=== PATIENT | male | born 1960 | race Caucasian/White ===

== ENCOUNTER 2018-03-02 17:12 | Emergency (ER) | payer MEDICAID, OTHER ==
[~2018-03-02] VITALS: Ht 172.7 cm; Wt 95.5 kg
[2018-03-02 17:43] VITALS: Ht 172.7 cm; Wt 95.5 kg
[2018-03-02] MEDS ORDERED: LORAZEPAM 2 MG INJ IV STA (17:43)
[2018-03-02] MEDS ORDERED: IPRATROPIUM (NEB) 0.5 MG/2.5 ML AMP NEB STA (17:43)
[2018-03-02] MEDS ORDERED: SOD CHLORIDE 0.9% 1,000 ML IV STA (17:43)
[2018-03-02] MEDS ORDERED: ALBUTEROL 0.083% (NEB) 2.5 MG/3 ML AMP NEB STA (17:43)
[2018-03-02] MEDS ORDERED: ONDANSETRON 4 MG INJ IV STA (17:53)
[2018-03-02] MEDS ORDERED: LIDOCAINE/MYLANTA 40 ML BTL PO STA (17:53)
[2018-03-02] MEDS ORDERED: BELLADONNA/PHENOBARBITAL TAB PO STA (17:53)
[2018-03-02] MEDS ORDERED: FOLIC ACID IV ONE (22:14)
[2018-03-02] MEDS ORDERED: [UNRECOGNIZED DRUG - OTHER] IV ONE (22:14)
[2018-03-02] MEDS ORDERED: MULTIVITAMINS IV ONE (22:14)
[2018-03-02] MEDS ORDERED: MAGNESIUM SULFATE IV ONE (22:14)
[2018-03-02] MEDS ORDERED: THIAMINE 100 MG TAB PO ONE (22:30)
--- NOTE | 2018-03-02 23:11 | ERD ---
ER Documentation Chief Complaint Chief Complaint bib ems from home d/t reports of drinking rubbing etoh, intractable coughin HPI This is a 57-year-old male with a history of alcohol abuse. He was brought into the emergency department by EMS as he stated he had been drinking again a significant amount of tequila throughout the day and ran out of alcohol. Therefore he stated he consumed 1 shot of rubbing alcohol and afterwards de veloped a significant amount of coughing. He states the coughing episode had lasted for roughly 1 hour. Therefore he phoned EMS and was brought to the emergency department for further evaluation. He denied any blunt or penetrating head chest or abdominal trauma. He denies headache. He denies any chest pain or pressure. He denies any difficulty in swallowing. He has not experienced any hemoptysis hematemesis or melanotic stools. He denies any abdominal pain. ROS All systems reviewed and are negative except as per history of present illness. Medications Home Meds No Active Prescriptions or Reported Meds Allergies Allergies: Coded Allergies: No Known Allergy (Unverified , 03/02/18) PMhx/Soc History of Surgery: No Anesthesia Reaction: No Hx Neurological Disorder: No Hx Respiratory Disorders: No Hx Cardiac Disorders: No Hx Psychiatric Problems: No Hx Miscellaneous Medical Probl: Yes (ETOH ABUSE) Hx Alcohol Use: Yes (ABUSE) Hx Substance Use: No Hx Tobacco Use: No Smoking Status: Never smoker Physical Exam Vitals Vital Signs Date Temp Pulse Resp B/P (MAP) Pulse Ox O2 O2 Flow FiO2 Time Delivery Rate 03/02/18 98.7 117 25 117/72 96 Room Air 21:04 (87) 03/02/18 115 19 99 21 17:51 03/02/18 99.8 118 30 119/77 100 17:43 (91) Physical Exam Constitutional:Well-developed. Well-nourished. Patient is coughing HEENT:Normocephalic. Atraumatic.Pupils were equal round reactive to light. Moist mucous membranes.No tonsillar exudates. No lesions of the oropharynx. No angioedema no macroglossia. No large amount of the uvula. Neck: No nuchal rigidity. No lymphadenopathy. No posterior cervical spine tenderness or step-offs. Respiratory: Not using accessory muscles of respiration.Lungs were clear to auscultation bilaterally. No rhonchi. No rales. No wheezing. Cardiovascular: Regular rate regular rhythm.No murmurs. No rubs were appreciated.S1, S2 normal. Distal pulses are palpable 2+ bilaterally. GI: Abdomen was soft. Nontender. Non Distended. No pulsatile abdominal masses or bruits. No rebound. No guarding. Bowel sounds were present and normal. Muscle skeletal: Full range of motion of both the upper and lower extremities bilaterally.Normal muscle tone.No assymetrical calf tenderness or swelling. Skin: No petechia, no purpura. No lesions on the palms or the soles of the feet. No maculopapular rash. NEURO: Patient was alert, awake, orientated x3.No facial droop. Gait observed and normal with no ataxia.Speech was slurred and smells of alcohol. No focal neurological deficits. Result Diagram: 03/02/18180103/02/181801 Results 24 hrs Laboratory Tests Test 03/02/18 18:02 White Blood Count 5.6 10^3/ul Red Blood Count 4.37 10^6/ul Hemoglobin 14.9 g/dl Hematocrit 43.4 % Mean Corpuscular Volume 99.3 fl Mean Corpuscular Hemoglobin 34.1 pg Mean Corpuscular Hemoglobin Concent 34.3 g/dl Red Cell Distribution Width 13.5 % Platelet Count 105 10^3/UL Mean Platelet Volume 12.5 fl Immature Granulocytes % 0.200 % Neutrophils % 49.0 % Lymphocytes % 43.1 % Monocytes % 5.9 % Eosinophils % 1.1 % Basophils % 0.7 % Nucleated Red Blood Cells % 0.0 /100WBC Immature Granulocytes # 0.010 10^3/ul Neutrophils # 2.8 10^3/ul Lymphocytes # 2.4 10^3/ul Monocytes # 0.3 10^3/ul Eosinophils # 0.1 10^3/ul Basophils # 0.0 10^3/ul Nucleated Red Blood Cells # 0.0 10^3/ul Sodium Level 139 mmol/L Potassium Level 4.4 mmol/L Chloride Level 102 mmol/L Carbon Dioxide Level 20 mmol/L Anion Gap 17 Blood Urea Nitrogen 18 mg/dl Creatinine 0.80 mg/dl Est Glomerular Filtrat Rate mL/min > 60 mL/min Glucose Level 119 mg/dl Calcium Level 9.4 mg/dl Total Bilirubin 1.2 mg/dl Direct Bilirubin 0.00 mg/dl Indirect Bilirubin 1.2 mg/dl Aspartate Amino Transf (AST/SGOT) 69 IU/L Alanine Aminotransferase (ALT/SGPT) 14 IU/L Alkaline Phosphatase 68 IU/L Total Protein 8.2 g/dl Albumin 4.8 g/dl Globulin 3.40 g/dl Albumin/Globulin Ratio 1.41 Amylase Level 99 U/L Lipase 130 U/L Salicylates Level < 1.0 mg/dl Acetaminophen Level < 10.0 ug/ml Ethyl Alcohol Level 345.0 mg/dl Current Medications Medications Dose Sig/Kerrie Start Time Status Last (Trade) Ordered Route PRN Stop Time Admin Dose Reason Admin Sodium 1,000 ml @ Q1H STAT 03/02/18 DC 03/02/18 Chloride 1,000 mls/hr IV 17:43 17:59 03/02/18 18:42 Albuterol 5 mg ONCE STAT 03/02/18 DC 03/02/18 (Proventil NEB 17:43 17:49 0.083% (Neb)) 03/02/18 17:45 Ipratropium 0.5 mg ONCE STAT 03/02/18 DC 03/02/18 [place] NEB 17:43 17:51 (Atrovent 03/02/18 17:45 0.02% (Neb)) Lorazepam 1 mg ONCE STAT 03/02/18 DC 03/02/18 (Ativan) IV 17:43 17:59 03/02/18 17:45 Ondansetron 4 mg ONCE STAT 03/02/18 DC 03/02/18 HCl (Zofran IV 17:53 17:59 Inj) 03/02/18 17:54 40 ml ONCE STAT 03/02/18 DC Miscellaneous PO 17:53 Medication 03/02/18 17:54 (Gi Cocktail (2)) Belladonna/ 2 tab ONCE STAT 03/02/18 DC 03/02/18 Phenobarbital PO 17:53 22:28 () 03/02/18 17:54 Magnesium 1,014.2 ml Q2H2M ONCE 03/02/18 03/02/18 Sulfate 2 @ 500 mls/ IV 22:14 22:39 gm/ hr 03/03/18 00:15 Multivitamins 10 ml/Folic Acid 1 mg/Sodium Chloride Thiamine 100 mg ONCE ONCE 03/02/18 DC 03/02/18 HCl PO 22:30 22:22 (Vitamin B1) 03/02/18 22:31 Procedures/MDM This is a 57-year-old male that presented to the emergency department acutely intoxicated and consumed 1 shot of isopropyl alcohol. The patient was placed on monitoring specialist continuous pulse oximetry and IV access was established by nursing staff. The patient continued to have a dry cough. The patient was given a GI cocktail Viscous Lidocaine Maalox and as well as a nebulizer treatment of albuterol. He was also given IV Ativan. His cough had subsided. 12 Lead EKG tracing ordered and reviewed by myself showed: Sinus tachycardia 120 bpm and no arrhythmia. IA interval normal. QRS duration normal. No ST segment elevation No ST segment depression. No changes consistent with acute ischemia. The patient no severe loculate abnormalities. The patient's serum ethanol was elevated at 345. Patient consumed 1 ounce of isopropyl alcohol several hours prior to arrival. I do not feel that the patient required charcoal. There is no signs of hypothermia hypotensive shock or respiratory depression. There was not an osmolar gap and I did feel that the patient's symptoms could further be supportive care. His is at bedside as well as his daughter. They felt comfortable discharging the patient home with his . The patient's tach ycardia had improved. He did receive a banana bag while in the emergency department. Observation Note: Time: 4 hours Family Hx: No Hypertension Evaluation: Multiple exams showed improving symptoms and no evidence of impending delirium tremors Departure Diagnosis: Primary Impression: Isopropyl alcohol poisoning Additional Impressions: Toxic encephalopathy Intoxication Condition: Fair Patient Instructions: Alcohol Intoxication ADENIKE YUN MD Mar 02, 2018 23:11
[2018-03-03 00:20] VITALS: BP 120/84; PULSE 104; RESP 15
== END 2018-03-03 00:23 | disposition home or self-care (01) ==
LOC: E/R 17:12
DX: T51.2X1A Toxic effect of 2-Propanol, accidental (unintentional), initial encounter (principal); G92 Toxic encephalopathy; R40.2242 Coma scale, best verbal response, confused conversation, at arrival to emergency department; R40.2352 Coma scale, best motor response, localizes pain, at arrival to emergency department; R40.2132 Coma scale, eyes open, to sound, at arrival to emergency department; R05 Cough
CPT/HCPCS: 71045; 80053; 80307; 82150; 83690; 85025; 93005; 94664; 96374; 96375; J2060; J2405; J3475; J7030; Z7502; Z7610

== ENCOUNTER 2018-07-22 18:45 | Emergency (ER) | payer MEDICAID, OTHER ==
[~2018-07-22] VITALS: Ht 172.7 cm; Wt 81.8 kg
[2018-07-22 18:54] VITALS: Ht 172.7 cm; Wt 81.8 kg
--- NOTE | 2018-07-22 19:03 | ERD ---
ER Documentation Chief Complaint Chief Complaint sob x today HPI The patient is a 58-year-old male, presenting to the ER by [employer] because of difficulty breathing today. He is under the influence and has been drinking, denies any trauma, denies headache, neck pain, chest pain, abdominal pain, vomiting, dysuria, diarrhea. He drinks regularly, was in the ER in March 02 for similar symptoms Past medical l history/past surgical history/social history/review of system: Limited due to condition Medications Home Meds No Active Prescriptions or Reported Meds Allergies Allergies: Coded Allergies: No Known Allergy (Unverified , 03/02/18) PMhx/Soc History of Surgery: No Anesthesia Reaction: No Hx Neurological Disorder: No Hx Respiratory Disorders: No Hx Cardiac Disorders: No Hx Psychiatric Problems: No Hx Miscellaneous Medical Probl: Yes (ETOH ABUSE) Hx Alcohol Use: Yes (ABUSE) Hx Substance Use: No Hx Tobacco Use: No Physical Exam Vitals Vital Signs Date Temp Pulse Resp B/P (MAP) Pulse Ox O2 O2 Flow FiO2 Time Delivery Rate 07/22/18 94 17 134/90 96 Room Air 19:37 (105) 07/22/18 Nasal 2 19:10 Cannula 07/22/18 99.0 118 18 139/90 99 18:54 (106) Physical Exam Const: No acute distress. Head: Atraumatic. Eyes: Normal Conjunctiva. ENT: Normal External Ears, Nose and Mouth. Neck: Full range of motion. No meningismus. Resp: Clear to auscultation bilaterally. Cardio: Regular rate and rhythm. Abd: Soft, non distended, normal bowel sounds, non tender. Skin: No petechiae or rashes. Back: No midline or flank tenderness. Ext: No cyanosis, or edema. Neur: Awake and alert. No focal deficit Psych: Anxious Result Diagram: 07/22/18190407/22/181904 Results 24 hrs Laboratory Tests Test 07/22/18 19:05 White Blood Count 7.2 10^3/ul Red Blood Count 4.27 10^6/ul Hemoglobin 14.6 g/dl Hematocrit 41.9 % Mean Corpuscular Volume 98.1 fl Mean Corpuscular Hemoglobin 34.2 pg Mean Corpuscular Hemoglobin Concent 34.8 g/dl Red Cell Distribution Width 12.7 % Platelet Count 84 10^3/UL Mean Platelet Volume 12.6 fl Immature Granulocytes % 0.300 % Neutrophils % 63.0 % Lymphocytes % 29.3 % Monocytes % 7.0 % Eosinophils % 0.0 % Basophils % 0.4 % Nucleated Red Blood Cells % 0.0 /100WBC Immature Granulocytes # 0.020 10^3/ul Neutrophils # 4.5 10^3/ul Lymphocytes # 2.1 10^3/ul Monocytes # 0.5 10^3/ul Eosinophils # 0.0 10^3/ul Basophils # 0.0 10^3/ul Nucleated Red Blood Cells # 0.0 10^3/ul Prothrombin Time 13.2 Sec Prothrombin Time Ratio 1.0 INR International Normalized Ratio 0.99 Activated Partial Thromboplast Time 28.1 Sec Sodium Level 140 mmol/L Potassium Level 4.2 mmol/L Chloride Level 101 mmol/L Carbon Dioxide Level 19 mmol/L Anion Gap 20 Blood Urea Nitrogen 13 mg/dl Creatinine 0.59 mg/dl Est Glomerular Filtrat Rate mL/min > 60 mL/min Glucose Level 118 mg/dl Calcium Level 9.0 mg/dl Total Bilirubin 1.7 mg/dl Direct Bilirubin 0.00 mg/dl Indirect Bilirubin 1.7 mg/dl Aspartate Amino Transf (AST/SGOT) 90 IU/L Alanine Aminotransferase (ALT/SGPT) 21 IU/L Alkaline Phosphatase 69 IU/L Troponin I < 0.012 ng/ml B-Type Natriuretic Peptide 51 PG/ML Total Protein 8.7 g/dl Albumin 4.8 g/dl Globulin 3.90 g/dl Albumin/Globulin Ratio 1.23 Ethyl Alcohol Level 286.0 mg/dl Current Medications Medications Dose Sig/Kerrie Start Time Status Last (Trade) Ordered Route PRN Stop Time Admin Dose Reason Admin Lorazepam 1 mg ONCE ONCE 07/22/18 DC 07/22/18 (Ativan) IV 19:30 19:33 07/22/18 19:31 Procedures/MDM EKG: Read by emergency physician Rate/Rhythm: Normal Sinus Rhythm 90 beats/min QRS, ST, T-waves: No ST elevation, no T inversion,RSR' in V1 Impression: Abnormal EKG MEDICAL MAKING DECISION: The patient is a 58-year-old male, presenting with acute anxiety, acute alcohol abuse. He was treated with Ativan 1 mg IV with good response, is resting comfortably The differential diagnoses considered include but are not limited to alcohol abuse, anxiety attack, panic attack, substance abuse Departure Diagnosis: Primary Impression: Alcohol abuse Additional Impressions: Panic attack Thrombocytopenia Condition: Good Comments The patient's blood pressure was elevated (>120/80) but appears stable without evidence of hypertension emergency or urgency. The patient was counseled about the risks of hypertension and urged to pursue outpatient monitoring and therapy within a week with their primary care physician. I discussed the findings with the patient. I advised the patient to follow-up with the primary physician in about 2-3 days, sooner if needed and return if any concern. he will be discharged when he barron Disclaimer: Inadvertent spelling and grammatical errors are likely due to EHR/dictation software use and do not reflect on the overall quality of patient care. Also, please note that the electronic time recorded on this note does not necessarily reflect the actual time of the patient encounter. JULIANN MCFARLAND MD Jul 22, 2018 19:03
[2018-07-22] MEDS ORDERED: LORAZEPAM 2 MG INJ IV ONE (19:30)
[2018-07-22 20:45] VITALS: BP 130/84; PULSE 84; RESP 17
== END 2018-07-22 20:49 | disposition home or self-care (01) ==
LOC: E/R 18:45
DX: F10.10 Alcohol abuse, uncomplicated (principal); D69.6 Thrombocytopenia, unspecified; F41.0 Panic disorder [episodic paroxysmal anxiety]
CPT/HCPCS: 36415; 71045; 80053; 80307; 83880; 84484; 85025; 85610; 85730; 93005; 96374; 99285; J2060